=== PATIENT | male | born 1940 | race Caucasian/White ===

== ENCOUNTER 2016-09-26 13:15 | Emergency (ER) | payer MEDICARE ==
--- NOTE | 2016-09-26 14:35 | RAD ---
FRONTAL VIEW CHEST THREE VIEW LEFT RIB SERIES CLINICAL HISTORY: Fall with left chest pain. FINDINGS: Frontal view chest reveals no consolidation, effusion, or pneumothorax. A right-sided dual-lead AIC D is present. Views of the left ribs reveal no evidence of a displaced left rib fracture. IMPRESSION: 1. No focal consolidation. 2. No displaced left rib fracture. POS: [facility]
== END 2016-09-26 14:50 | disposition home or self-care (01) ==
LOC: MADERS 13:15
DX: S20.212A Contusion of left front wall of thorax, initial encounter (principal); I25.2 Old myocardial infarction; I10 Essential (primary) hypertension; Z79.82 Long term (current) use of aspirin; Z79.899 Other long term (current) drug therapy; W22.8XXA Striking against or struck by other objects, initial encounter

== ENCOUNTER 2016-11-09 12:58 | Outpatient (CLI) | payer MEDICARE ==
[2016-11-09 14:05] LABS: ALT (SGPT) 29 U/L (0-55); AST (SGOT) 29 U/L (5-34); Albumin 4.2 g/dL (3.4-4.8); Alkaline Phosphatase 54 U/L (40-150); Anion Gap 17 mmol/L (10-20); BUN (Urea Nitrogen) 21 mg/dL (8.4-25.7); Bilirubin, Direct 0.3 mg/dL (0.1-0.3); Bilirubin, Total 0.7 mg/dL (0.2-1.2); Calc. Creatinine Clearance 0 mL/min (70-130); Calcium 9.6 mg/dL (7.8-10.44); Carbon Dioxide 26 mmol/L (23-31); Cardiac Risk 2.5 (Less than 4.5); Chloride 100 mmol/L (98-107); Cholesterol 180 mg/dL (< 200 Desired); Estimated GFR-MDRD 33; Glucose 106 mg/dL (83-110); HDL Cholesterol 71 mg/dL (>60 Neg Risk); LDL Cholesterol, Calculated 79 mg/dL; Protein, Total 6.8 g/dL (5.8-8.1); Sodium 139 mmol/L (136-145); Triglycerides 150 mg/dL (Less than 150)
[2016-11-09 14:12] LABS: #Eosinphils 0.2 thou/uL (0.0-0.7); #Lymphocytes 0.9 thou/uL (1.20-3.40); #Monocytes 0.4 thou/uL (0.11-0.59); #Neutrophils 2.4 thou/uL (1.40-6.50); %Basophils 0.6 % (0.0-1.0); %Eosinophils 5.7 % (0.0-10.0); %Lymphocytes 22.5 % (21.0-51.0); %Monocytes 9.9 % (0.0-10.0); %Neutrophils 61.3 % (42.0-75.0); Anisocytosis SLIGHT = 6-15 cells (100X) (0-5/hpf); MDiff Complete? YES; Macrocytosis SLIGHT = 6-15 cells (100X) (0-5/hpf); Mean Corpuscular Hemoglobin 37.9 pg (27.0-31.0); Mean Platelet Volume 8.5 fL (7.4-10.4); PLT Morphology Comment Appears Decreased; Platelet Count 115 thou/uL (130-400); RBC Distribution Width 13.2 % (11.5-14.5); Red Blood Cell (RBC) Count 3.69 mill/uL (4.70-6.10); White Blood Cell (WBC) Count 3.9 thou/uL (4.8-10.8)
== END 2016-11-09 12:59 | disposition home or self-care (01) ==
LOC: MADLABBHPM 12:58
PROVIDERS: ATTEND Family Medicine
DX: I10 Essential (primary) hypertension (principal); I42.9 Cardiomyopathy, unspecified
CPT/HCPCS: 36415; 80048; 80061; 80076; 85025

== ENCOUNTER 2017-01-14 12:43 | Outpatient (CLI) | payer MEDICARE ==
[2017-01-14 13:36] LABS: Hemoglobin 14.4 g/dL (14.0-18.0)
[2017-01-14 13:51] LABS: Anion Gap 17 mmol/L (10-20); BUN (Urea Nitrogen) 20 mg/dL (8.4-25.7); Calc. Creatinine Clearance 0 mL/min (70-130); Calcium 9.9 mg/dL (7.8-10.44); Carbon Dioxide 25 mmol/L (23-31); Chloride 100 mmol/L (98-107); Estimated GFR-MDRD 34; Glucose 114 mg/dL (83-110); Potassium 4.2 mmol/L (3.5-5.1); Sodium 138 mmol/L (136-145)
--- NOTE | 2017-01-14 15:33 | ULT ---
RENAL ULTRASOUND: History: Chronic kidney disease. Comparison: None. FINDINGS: Right kidney measures 8.9 x 4.3 x 5.4 cm with cortical thinning. There is moderate right sided hydro nephrosis. The left kidney measures 10.5 x 5.6 x 4.8 cm without mass, hydronephrosis, or abnormal ca lcifications. Bladder volume is 21 ml pre void. The post void volume is less than 1 ml. The right sided hydronephrosis has mild decrease after urination. IMPRESSION: Chronic appearing right sided hydronephrosis with cortical thinning and small right kidney relative to the left. This suggests chronic obstructive process versus chronic reflux disease. A follow up CT could be performed. POS: [facility]
[2017-01-15 17:31] LABS: Creatinine, Urine 213.15 mg/dL (63-166)
== END 2017-01-14 12:44 | disposition home or self-care (01) ==
LOC: MADULT 12:43
PROVIDERS: ATTEND Internal Medicine Nephrology
DX: I13.0 Hypertensive heart and chronic kidney disease with heart failure and stage 1 through stage 4 chronic kidney disease, or unspecified chronic kidney disease (principal); N18.3 Chronic kidney disease, stage 3 (moderate); I48.91 Unspecified atrial fibrillation; N13.30 Unspecified hydronephrosis
CPT/HCPCS: 36415; 76770; 80048; 82306; 82570; 83970; 84156; 85014; 85018

== ENCOUNTER 2017-02-13 12:19 | Outpatient (CLI) | payer MEDICARE ==
[2017-02-13 13:20] LABS: ALT (SGPT) 35 U/L (8-55); AST (SGOT) 28 U/L (5-34); Albumin 4.1 g/dL (3.4-4.8); Alkaline Phosphatase 53 U/L (40-150); Anion Gap 18 mmol/L (10-20); BUN (Urea Nitrogen) 25 mg/dL (8.4-25.7); Bilirubin, Direct 0.4 mg/dL (0.1-0.3); Bilirubin, Total 0.8 mg/dL (0.2-1.2); Calc. Creatinine Clearance 0 mL/min (70-130); Carbon Dioxide 24 mmol/L (23-31); Cardiac Risk 2.6 (Less than 4.5); Chloride 99 mmol/L (98-107); Cholesterol 182 mg/dl (< 200 Desired); Estimated GFR-MDRD 36; Glucose 114 mg/dL (83-110); HDL Cholesterol 69 mg/dL (>60 Neg Risk); LDL Cholesterol, Calculated 88 mg/dL; Potassium 4.3 mmol/L (3.5-5.1); Protein, Total 7.2 g/dL (5.8-8.1); Sodium 137 mmol/L (136-145); Triglycerides 126 mg/dL (Less than 150)
[2017-02-13 13:25] LABS: #Eosinphils 0.3 thou/uL (0.0-0.7); #Lymphocytes 0.7 thou/uL (1.20-3.40); #Monocytes 0.4 thou/uL (0.11-0.59); #Neutrophils 2.9 thou/uL (1.40-6.50); %Basophils 0.3 % (0.0-1.0); %Eosinophils 7.8 % (0.0-10.0); %Lymphocytes 15.4 % (21.0-51.0); %Neutrophils 67.5 % (42.0-75.0); MDiff Complete? YES; Macrocytosis SLIGHT = 6-15 cells (100X) (0-5/hpf); Mean Corpuscular HGB CONC 32.4 g/dL (32.0-36.0); Mean Corpuscular Hemoglobin 37.5 pg (27.0-31.0); Mean Corpuscular Volume 115.5 fl (80.0-94.0); Mean Platelet Volume 9.4 fL (7.4-10.4); PLT Morphology Comment Appears Decreased; Platelet Count 127 thou/uL (130-400); RBC Distribution Width 12.6 % (11.5-14.5); Red Blood Cell (RBC) Count 3.75 mill/uL (4.70-6.10); White Blood Cell (WBC) Count 4.3 thou/uL (4.8-10.8)
== END 2017-02-13 12:20 | disposition home or self-care (01) ==
LOC: MADLABBHPM 12:19
PROVIDERS: ATTEND Family Medicine
DX: E78.5 Hyperlipidemia, unspecified (principal); I10 Essential (primary) hypertension; I48.91 Unspecified atrial fibrillation
CPT/HCPCS: 36415; 80048; 80061; 80076; 85025

== ENCOUNTER 2017-03-28 14:24 | Outpatient (CLI) | payer MEDICARE | END 2017-03-28 14:25 | disposition home or self-care (01) | LOC: MADLAB 14:24 | PROVIDERS: ATTEND Urology | DX: N13.39 Other hydronephrosis (principal); R97.20 Elevated prostate specific antigen [PSA] | CPT/HCPCS: 36415; 84153 ==

== ENCOUNTER 2017-04-16 13:35 | Emergency (ER) | payer MEDICARE ==
[2017-04-16 14:25] LABS: INR-International Normal Ratio 2.5; Prothrombin Time 27.8 SEC (12.0-14.7)
--- NOTE | 2017-04-16 14:26 | CT ---
NONCONTRAST HEAD CT: History: Patient fell early Saturday. Patient fell again on Saturday morning. He hit his head on the cor ner of a table. Comparison: None. Technique: Noncontrast head CT is performed in the axial plane. Reformatted images are submitted for interpretation. FINDINGS: There is a posterior midline and posterior right paramidline scalp hematoma. The underlying calvariu m is intact. Adequate aeration of the sinuses and mastoid air cells. Cavernous carotid atheroscleros is is noted. No parenchymal hemorrhage or extraaxial hematoma. No midline shift. Basilar cisterns are patent. Age appropriate atrophy. Cortical galeano white matter differentiation is preserved. Ventricles and sulci are patent and symmetric. Remote lacunar infarct in the left thalamus. Chronic small vessel ischemic change in the white matte r noted. IMPRESSION: Post-traumatic injury to the scalp. No intracranial post-traumatic sequellae. POS: [facility]
== END 2017-04-16 15:15 | disposition home or self-care (01) ==
LOC: MADERS 13:35
DX: S00.03XA Contusion of scalp, initial encounter (principal); R79.1 Abnormal coagulation profile; I25.2 Old myocardial infarction; I10 Essential (primary) hypertension; Z79.891 Long term (current) use of opiate analgesic; Z79.82 Long term (current) use of aspirin; Z79.899 Other long term (current) drug therapy; Z79.01 Long term (current) use of anticoagulants; W22.8XXA Striking against or struck by other objects, initial encounter
CPT/HCPCS: 36415; 70450; 85610

== ENCOUNTER 2017-05-14 13:41 | Outpatient (CLI) | payer MEDICARE ==
[2017-05-14 14:42] LABS: INR-International Normal Ratio 2.1; Prothrombin Time 24.5 SEC (12.0-14.7)
[2017-05-14 14:47] LABS: ALT (SGPT) 34 U/L (8-55); AST (SGOT) 31 U/L (5-34); Albumin 4.2 g/dL (3.4-4.8); Alkaline Phosphatase 57 U/L (40-150); Anion Gap 16 mmol/L (10-20); BUN (Urea Nitrogen) 21 mg/dL (8.4-25.7); Bilirubin, Direct 0.5 mg/dL (0.1-0.3); Calc. Creatinine Clearance 0 mL/min (70-130); Carbon Dioxide 27 mmol/L (23-31); Cardiac Risk 2.5 (Less than 4.5); Chloride 99 mmol/L (98-107); Cholesterol 195 mg/dl (< 200 Desired); Estimated GFR-MDRD 37; Glucose 110 mg/dL (83-110); HDL Cholesterol 77 mg/dL (>60 Neg Risk); LDL Cholesterol, Calculated 97 mg/dL; Potassium 3.9 mmol/L (3.5-5.1); Protein, Total 7.4 g/dL (5.8-8.1); Sodium 138 mmol/L (136-145); Triglycerides 105 mg/dL (Less than 150)
[2017-05-14 14:48] LABS: #Eosinphils 0.2 thou/uL (0.0-0.7); #Lymphocytes 0.7 thou/uL (1.20-3.40); #Monocytes 0.3 thou/uL (0.11-0.59); #Neutrophils 3.1 thou/uL (1.40-6.50); %Basophils 0.6 % (0.0-1.0); %Eosinophils 5.5 % (0.0-10.0); %Lymphocytes 15.4 % (21.0-51.0); %Monocytes 7.1 % (0.0-10.0); %Neutrophils 71.5 % (42.0-75.0); Anisocytosis SLIGHT = 6-15 cells (100X) (0-5/hpf); Hemoglobin 14.1 g/dL (14.0-18.0); MDiff Complete? YES; Macrocytosis SLIGHT = 6-15 cells (100X) (0-5/hpf); Mean Corpuscular HGB CONC 32.2 g/dL (32.0-36.0); Mean Corpuscular Volume 111.9 fl (80.0-94.0); Mean Platelet Volume 9.6 fL (7.4-10.4); Platelet Count 124 thou/uL (130-400); RBC Distribution Width 13.4 % (11.5-14.5); Red Blood Cell (RBC) Count 3.92 mill/uL (4.70-6.10); White Blood Cell (WBC) Count 4.4 thou/uL (4.8-10.8)
== END 2017-05-14 13:42 | disposition home or self-care (01) ==
LOC: MADLABBHPM 13:41
PROVIDERS: ATTEND Family Medicine
DX: N18.3 Chronic kidney disease, stage 3 (moderate) (principal); E78.5 Hyperlipidemia, unspecified
CPT/HCPCS: 36415; 80048; 80061; 80076; 85025; 85610

== ENCOUNTER 2017-06-11 18:02 | Outpatient (CLI) | payer MEDICARE ==
[2017-06-11 18:16] LABS: INR-International Normal Ratio 2.5; Prothrombin Time 28.4 SEC (12.0-14.7)
== END 2017-06-11 18:03 | disposition home or self-care (01) ==
LOC: MADLAB 18:02
PROVIDERS: ATTEND Internal Medicine Cardiovascular Disease
DX: I48.91 Unspecified atrial fibrillation (principal)
CPT/HCPCS: 36415; 85610

== ENCOUNTER 2017-07-12 10:41 | Outpatient (CLI) | payer MEDICARE ==
[2017-07-12 11:15] LABS: INR-International Normal Ratio 2.8; Prothrombin Time 30.6 SEC (12.0-14.7)
[2017-07-12 11:30] LABS: ALT (SGPT) 39 U/L (8-55); AST (SGOT) 28 U/L (5-34); Albumin 4.1 g/dL (3.4-4.8); Alkaline Phosphatase 58 U/L (40-150); Anion Gap 16 mmol/L (10-20); BUN (Urea Nitrogen) 17 mg/dL (8.4-25.7); Bilirubin, Total 0.8 mg/dL (0.2-1.2); Calc. Creatinine Clearance 0 mL/min (70-130); Calcium 9.8 mg/dL (7.8-10.44); Carbon Dioxide 30 mmol/L (23-31); Cardiac Risk 2.4 (Less than 4.5); Chloride 101 mmol/L (98-107); Cholesterol 195 mg/dl (< 200 Desired); Estimated GFR-MDRD 39; Glucose 132 mg/dL (83-110); HDL Cholesterol 82 mg/dL (>60 Neg Risk); LDL Cholesterol, Calculated 90 mg/dL; Magnesium 2.2 mg/dL (1.6-2.6); Potassium 4.4 mmol/L (3.5-5.1); Protein, Total 7.1 g/dL (5.8-8.1); Sodium 143 mmol/L (136-145); Triglycerides 117 mg/dL (Less than 150)
== END 2017-07-12 10:42 | disposition home or self-care (01) ==
LOC: MADLAB 10:41
PROVIDERS: ATTEND Internal Medicine Cardiovascular Disease
DX: Z51.81 Encounter for therapeutic drug level monitoring (principal); E78.00 Pure hypercholesterolemia, unspecified; I48.91 Unspecified atrial fibrillation; Z79.01 Long term (current) use of anticoagulants
CPT/HCPCS: 36415; 80053; 80061; 83735; 83880; 84443; 85610

== ENCOUNTER 2017-07-31 14:22 | Outpatient (CLI) | payer MEDICARE ==
[2017-07-31 15:00] LABS: INR-International Normal Ratio 1.1; Prothrombin Time 14.5 SEC (12.0-14.7)
== END 2017-07-31 14:23 | disposition home or self-care (01) ==
LOC: MADLABBHPM 14:22
PROVIDERS: ATTEND Family Medicine
DX: Z51.81 Encounter for therapeutic drug level monitoring (principal); I48.91 Unspecified atrial fibrillation; Z79.01 Long term (current) use of anticoagulants
CPT/HCPCS: 36415; 85610

== ENCOUNTER 2017-09-02 21:08 | Emergency (ER) | payer MEDICARE ==
[~2017-09-02 21:08] MED LIST: Sodium Chloride 0.9% 500 ML BAG ONE
[2017-09-02 21:55] LABS: Bilirubin Negative (Negative); Blood, Urine Small (Negative); Clarity Clear (Clear); Glucose, Urine (Dipstick) Negative (Negative); Leukocyte Trace (Negative); Nitrite Negative (Negative); Protein, Urine (Dipstick) Negative (Neg-Trace); Specific Gravity, Urine 1.015 (1.005-1.030); Urobilinogen 0.2 mg/dL (0.2-1.0)
[2017-09-02 22:03] LABS: INR-International Normal Ratio 2.2; PTT 34.9 SEC (22.9-36.1); Prothrombin Time 25.3 SEC (12.0-14.7)
--- NOTE | 2017-09-02 22:03 | RAD ---
PORTABLE AP CHEST RADIOGRAPH: Date: 09-02-17 History: Dyspnea. Comparison: 07-22-17 FINDINGS: Dual-lead left subclavian AICD device is noted in place. There is mild elevation of left hemidiaphrag m. Cardiac silhouette and pulmonary vasculature are within normal limits. The lungs remain clear. The re has been no interval change compared to the prior exam. IMPRESSION: No acute cardiopulmonary process. POS: [facility]
[2017-09-02 22:05] LABS: #Eosinphils 0.1 thou/uL (0.0-0.7); #Lymphocytes 0.7 thou/uL (1.20-3.40); #Monocytes 0.5 thou/uL (0.11-0.59); #Neutrophils 4.5 thou/uL (1.40-6.50); %Basophils 0.4 % (0.0-1.0); %Eosinophils 2.4 % (0.0-10.0); %Lymphocytes 11.1 % (21.0-51.0); %Monocytes 8.9 % (0.0-10.0); %Neutrophils 77.2 % (42.0-75.0); Hemoglobin 14.4 g/dL (14.0-18.0); Mean Corpuscular HGB CONC 33.7 g/dL (32.0-36.0); Mean Corpuscular Hemoglobin 36.4 pg (27.0-31.0); Mean Corpuscular Volume 107.9 fl (80.0-94.0); Mean Platelet Volume 9.7 fL (7.4-10.4); Platelet Count 168 thou/uL (130-400); RBC Distribution Width 13.2 % (11.5-14.5); Red Blood Cell (RBC) Count 3.97 mill/uL (4.70-6.10); White Blood Cell (WBC) Count 5.8 thou/uL (4.8-10.8)
[2017-09-02 22:07] LABS: Anisocytosis MODERATE=16-30 cells (100X) (0-5/hpf); Bacteria/HPF 1+ HPF (None Seen); Macrocytosis MODERATE=16-30 cells (100X) (0-5/hpf)
[2017-09-02 22:15] LABS: ALT (SGPT) 88 U/L (8-55); AST (SGOT) 38 U/L (5-34); Albumin 4.3 g/dL (3.4-4.8); Alkaline Phosphatase 74 U/L (40-150); Anion Gap 20 mmol/L (10-20); BUN (Urea Nitrogen) 50 mg/dL (8.4-25.7); Bilirubin, Total 0.8 mg/dL (0.2-1.2); Calc. Creatinine Clearance 0 mL/min (70-130); Calcium 10.4 mg/dL (7.8-10.44); Carbon Dioxide 31 mmol/L (23-31); Chloride 87 mmol/L (98-107); Estimated GFR-MDRD 23; Globulin 3.3 g/dL (2.4-3.5); Glucose 163 mg/dL (83-110); Potassium 3.7 mmol/L (3.5-5.1); Protein, Total 7.6 g/dL (5.8-8.1); Sodium 134 mmol/L (136-145)
[2017-09-02] MEDS ORDERED: Cephalexin 250 MG CAP ONE (23:03)
== END 2017-09-02 23:40 | disposition home or self-care (01) ==
LOC: MADERS 21:08
DX: E86.0 Dehydration (principal); N39.0 Urinary tract infection, site not specified; I25.2 Old myocardial infarction; I10 Essential (primary) hypertension; F17.210 Nicotine dependence, cigarettes, uncomplicated; Z79.01 Long term (current) use of anticoagulants; Z79.82 Long term (current) use of aspirin; Z79.899 Other long term (current) drug therapy
CPT/HCPCS: 36415; 71045; 80053; 81003; 81015; 83605; 83880; 85025; 85610; 85730; 87086; 93005; 94760; 96360; 96361; J7050

== ENCOUNTER 2017-11-07 15:25 | Outpatient (CLI) | payer MEDICARE ==
[2017-11-07 16:18] LABS: Bilirubin Negative (Negative); Blood, Urine Large (Negative); Glucose, Urine (Dipstick) Negative (Negative); Leukocyte Small (Negative); Nitrite Positive (Negative); Protein, Urine (Dipstick) 30 mg/dL (Neg-Trace); Urobilinogen 0.2 mg/dL (0.2-1.0)
[2017-11-07 16:24] LABS: Clarity Hazy (Clear)
[2017-11-07 16:25] LABS: Bacteria/HPF Rare-Few HPF (None Seen); RBC/HPF GREATER THAN 50-TNTC HPF (0-3); Squamous Epithelial 0-3 HPF (0-3)
== END 2017-11-07 15:26 | disposition home or self-care (01) ==
LOC: MADLAB 15:25
PROVIDERS: ATTEND Urology
DX: N40.1 Benign prostatic hyperplasia with lower urinary tract symptoms (principal); N13.39 Other hydronephrosis
CPT/HCPCS: 81001

== ENCOUNTER 2018-03-24 09:51 | Outpatient (CLI) | payer MEDICARE ==
[2018-03-24 12:18] LABS: Anion Gap 19 mmol/L (10-20); BUN (Urea Nitrogen) 31 mg/dL (8.4-25.7); Calc. Creatinine Clearance 0 mL/min (70-130); Calcium 9.5 mg/dL (7.8-10.44); Chloride 99 mmol/L (98-107); Estimated GFR-MDRD 50; Glucose 117 mg/dL (83-110); Potassium 3.9 mmol/L (3.5-5.1); Sodium 136 mmol/L (136-145)
[2018-03-24 14:11] LABS: Carbon Dioxide 26 mmol/L (23-31)
== END 2018-03-24 09:52 | disposition home or self-care (01) ==
LOC: MADLABBHPM 09:51
PROVIDERS: ATTEND Internal Medicine Cardiovascular Disease
DX: I50.22 Chronic systolic (congestive) heart failure (principal)
CPT/HCPCS: 36415; 80048

== ENCOUNTER 2018-06-11 15:33 | Outpatient (CLI) | payer MEDICARE ==
[2018-06-11 15:57] LABS: Bilirubin Negative (Negative); Blood, Urine Large (Negative); Glucose, Urine (Dipstick) Negative (Negative); Leukocyte Moderate (Negative); Nitrite Positive (Negative); Protein, Urine (Dipstick) 100 mg/dL (Neg-Trace); pH, Urine 5.5 (5.0-9.0)
[2018-06-11 15:58] LABS: Clarity Cloudy (Clear)
[2018-06-12 16:50] LABS: RBC/HPF 21-50 HPF (0-3)
[2018-06-12 16:51] LABS: Bacteria/HPF 4+ HPF (None Seen); Crystals/HPF 3+ CA OXALATE HPF (Negative); Squamous Epithelial 0-3 HPF (0-3); Transitional Epithelial 0-3 HPF (0-3)
== END 2018-06-11 15:34 | disposition home or self-care (01) ==
LOC: MADLABBHPM 15:33
PROVIDERS: ATTEND Family Medicine
DX: N39.0 Urinary tract infection, site not specified (principal); R30.0 Dysuria
CPT/HCPCS: 81003; 81015; 87077; 87086

== ENCOUNTER 2018-06-28 18:27 | Outpatient (CLI) | payer MEDICARE ==
[2018-06-28 18:48] LABS: Bilirubin Negative (Negative); Blood, Urine Moderate (Negative); Clarity Clear (Clear); Glucose, Urine (Dipstick) Negative (Negative); Leukocyte Moderate (Negative); Nitrite Negative (Negative); Protein, Urine (Dipstick) Trace mg/dL (Neg-Trace); Specific Gravity, Urine 1.015 (1.005-1.030); Urobilinogen 0.2 mg/dL (0.2-1.0)
[2018-06-28 18:59] LABS: Bacteria/HPF Rare-Few HPF (None Seen); Squamous Epithelial 0-3 HPF (0-3); WBC/HPF 21-50 HPF (0-3)
[2018-06-28 19:00] LABS: Crystals/HPF RARE CA OXALATE HPF (Negative); Other Casts/LPF 0-3 COARSE GRAN LPF (0-3 Hyaline)
== END 2018-06-28 18:28 | disposition home or self-care (01) ==
LOC: MADLAB 18:27
PROVIDERS: ATTEND Urology
DX: Z51.81 Encounter for therapeutic drug level monitoring (principal); I48.91 Unspecified atrial fibrillation; Z79.01 Long term (current) use of anticoagulants
CPT/HCPCS: 81001; 87086

== ENCOUNTER 2019-10-08 14:35 | Inpatient (IN) | payer MEDICARE ==
[2019-10-08] MEDS ORDERED: Diphenoxylate HCl/Atropine Tablet PO PRN (17:43)
[2019-10-08] MEDS ORDERED: traMADol HCl 50 MG TAB PO PRN (17:43)
[2019-10-08] MEDS ORDERED: Midodrine HCl 2.5 MG TAB PO PRN (17:43)
[2019-10-08] MEDS ORDERED: Ventolin HFA Inhaler 60 PUFF INHALER INH PRN (17:43)
[2019-10-08] MEDS ORDERED: HYDROcodone/Acetaminophen 10/325 mg Tablet PO PRN (17:43)
[2019-10-08] MEDS ORDERED: Clindamycin 150 MG CAP PO SCH (18:00)
[2019-10-08 18:16] VITALS: BP 107/82; TEMP 98.1
[2019-10-08] MEDS ORDERED: Atorvastatin Calcium 40 MG TAB PO SCH (21:00)
[2019-10-08] MEDS ORDERED: Tamsulosin HCl 0.4 MG CAP PO SCH (21:00)
[2019-10-08] MEDS ORDERED: Non-Formulary Item 1 EACH (Potassium Chloride [Potassium Chloride] 10 MEQ) PO SCH (21:00)
[2019-10-08] MEDS ORDERED: Amiodarone 200 MG TAB PO SCH (21:00)
[2019-10-08] MEDS ORDERED: Torsemide 20 MG TAB PO SCH (21:00)
--- NOTE | 2019-10-09 05:41 | HP ---
CHIEF COMPLAINT: Weak and sore on his left foot. HISTORY OF PRESENT ILLNESS: The patient is an 79-year-old white male, who has a history of an ischemic cardiomyopathy with an ejection fraction now of 40% to 45 %, who has an AICD and history of repeated episodes of ventricular tachycardia. He also has a history of bladder cancer and urothelial carcinoma of the right ureter, for which he has been on chemotherapy and radiation with carboplatin and Taxol. He has completed six treatments, the last of which was on 09/25/2019. He also has received 28 radiation treatments, the last of which was on 09/30/2019. The patient was hospitalized at [facility] from 09/30 to 10/08/2019, because of the ulceration of the left heel with infection and also possible bronchial pneumonia. He was also found to be very neutropenic, probably from the most recent chemotherapy. He received 1 unit of blood, was treated with cefepime and vancomycin. He gradually improved, but was left extremely weak and had ongoing care of the left heel. The radiation therapy was stopped because of a radiation- induced cystitis and possible colitis. His chemotherapy was stopped due to the neutropenia and acute illness. The patient was referred to [facility] for purpose of physical therapy and occupational therapy in an effort to try to improve his general strength. The patient said prior to this hospitalization, he had been able to ambulate in his home with a walker and even in the driveway some. He is able to feed himself. He needs assistance with dressing and needs assistance with all his instrumental ADLs. The patient was seen soon after his admission and was able to tell me that he had been hospitalized for these above reasons and that lately, he has not had much of an appetite, has been just a little nauseated today. I have reviewed his records from [facility] during this admission and noted that he was seen by the Pulmonary doctor, Dr. Fletcher this morning and said that he had a little disorientation after taking the Ambien last night, this will be stopped. His neutropenia had resolved or had markedly improved with white cell count up to 3.3, hematocrit up to 26.1, and a platelet count of 34,000. PAST MEDICAL HISTORY: Hospitalized at [facility] from 09/30 until 10/08/2019 for infected ulcer on the left heel, neutropenia from recent radiation therapy, requiring transfusion of 1 unit of blood, possible bronchopneumonia and radiation-induced cystitis, for which his radiation has now been stopped. The patient was treated initially with IV cefepime and vancomycin. The patient has ischemic cardiomyopathy. Initially, the EF was 30% to 35%, but this has improved to 40% to 45% on echocardiogram done on 10/06/2019. There was evidence of inferior wall and apex hypokinesis. The patient has an AICD for the cardiomyopathy, has been treated in the past for repeated episodes of ventricular tachycardia. He has coronary artery disease, for which he has had multiple stents. He also required a pericardial window in April 2018 for pericardial tamponade. He has a history of hypertension, macular degeneration, atrial fibrillation, bilateral cataracts that have been removed with intraocular lens implant, history of congestive heart failure, chronic kidney disease, cancer of the bladder. 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 Orthostatic hypotension. PRESENT MEDICINES: 1. Lomotil 2 tabs q.i.d. as needed. 2. Torsemide 20 mg b.i.d. 3. Midodrine 2.5 mg b.i.d. 4. Hydrocodone/acetaminophen 10/325 one t.i.d. as needed. 5. Tamsulosin 0.4 mg at bedtime. 6. Potassium chloride 10 mEq b.i.d. 7. Vitamin D3 of 1000 units daily. 8. Ventolin inhaler two puffs every 6 hours as needed. 9. Tylenol PM one at bedtime as needed. 10. Folic acid 1 mg daily. 11. Finasteride 5 mg daily. 12. Clindamycin 450 mg every 6 hours. 13. Atorvastatin 40 mg at bedtime. 14. Amiodarone 200 mg t.i.d. 15. Tramadol 50 mg q.i.d. as needed. ALLERGIES: AMBIEN CAUSES CONFUSION. MUCINEX CAUSES PALPITATION. REVIEW OF SYSTEMS: GENERAL: The patient said he has been doing okay, just does not have much of an appetite. He does not think he has had any recent fever. HEAD AND NECK: No complaints. PULMONARY: The patient says he is on continuous supplemental oxygen. CARDIOVASCULAR: The patient has a history of repeated episodes of ventricular tachycardia and has had multiple episodes where his AICD discharges, had a new AICD implanted two months ago and he said since then he has not had any discharges. GI: Poor appetite. He has had a little nausea. He has intermittent diarrhea. NEUROPSYCHIATRIC: The patient has problems. The patient says he has generalized weakness that is nonfocal. HABITS: The patient smokes. Alcohol, none. SOCIAL HISTORY: The patient is , lives with his who is the primary caregiver. CODE STATUS: DNR. PHYSICAL EXAMINATION: GENERAL: Shows a weak 79-year-old white male, who is lying in bed. He is alert , talkative, recognized me, and appears in no acute distress. VITAL SIGNS: His temp is 98.6, pulse 73, respirations 18, O2 saturation 90% on 4 L, and blood pressure 103/57. The patient has not yet been weighed here. HEENT: Head, normocephalic. Eyes, pupils are equal, round, and reactive. Sclerae nonicteric. Ears, TMs are clear. Nose, normal. Mouth and throat, normal. NECK: Carotids are equal and strong. LUNGS: Clear. HEART: Regular rate. The patient has an AICD pacemaker in the right upper anterior chest, incision overlying, this is well healed. ABDOMEN: Soft, nontender. EXTREMITIES: No edema. The patient has an ulcer on the left heel, this is dressed and according to the pictures, this is about 2 to 3 cm with a black overlying eschar. On his left buttock, there is about a 3 cm stage II decubitus. NEUROLOGIC: The patient is alert and oriented to where he is and situation. He has generalized weakness that is nonfocal. IMPRESSION: 1. Generalized weakness and deconditioning. a. Following hospitalization from 09/30 to 10/08 for infected decubitus of the left heel, bronchial pneumonia, neutropenia from recent chemotherapy, required transfusion with 1 unit of blood and radiation cystitis. b. Requires assistance with all his ADLs. 2. Ischemic cardiomyopathy. a. Originally, ejection fraction was 30% to 35%. On echocardiogram on 10/06 , EF was up to 40% to 45%. b. Status post AICD placement and replacement again two months ago. c. Complicated by repeated episodes of ventricular fibrillation and episode of AICD discharge on 10/08/19 with transfer to ER. 3. Coronary artery disease. a. Status post multiple stents. 4. Cancer of the bladder and urothelial carcinoma of the right ureter. a. Status post six cycles of chemotherapy with carboplatin and Taxol, last treatment 09/25/2019, complicated by neutropenia. b. Status post radiation therapy, 28 treatments, that was stopped on 09/30 for radiation cystitis. 5. Chronic kidney disease. 6. Orthostatic hypotension. 7. Stage II decubitus on the left buttock. 8. Unstageable decubitus on the left heel. a. Recent infection. 9. Chronic hypoxic respiratory failure. a. Continue with supplemental O2. 10. Gastroesophageal reflux disease. PLAN: The patient has been admitted for wound care and for PT and OT. The patient had requested getting up to go to the restroom because he felt like he needed to have a bowel movement. While sitting on the commode with the nurse there, he had a sudden jerk and said that his pacemaker had discharged. The patient was taken back to the emergency room. I spoke with the emergency room doctor, Dr. Isidoro [place] because the patient has had probably an episode of ventricular tachycardia based on his history and an AICD discharge. Do not have the capabilities of monitoring this patient here; anticipate that he will require transfer back to [facility] and re-evaluation by his orthotic technician. Job ID: [id number] MTDD
[2019-10-09] MEDS ORDERED: Finasteride 5 MG TAB PO SCH (09:00)
[2019-10-09] MEDS ORDERED: Non-Formulary Item 1 EACH (Cholecalciferol (Vitamin D3) [Vitamin D3] 1,000 UNIT) PO SCH (09:00)
[2019-10-09] MEDS ORDERED: Folic Acid 1 MG TAB PO SCH (09:00)
== END 2019-10-08 18:17 | disposition short-term general hospital (02) | DRG 593 ==
LOC: MADMS 14:35
PROVIDERS: ADMIT Family Medicine; ATTEND Family Medicine
DX: L89.620 Pressure ulcer of left heel, unstageable (principal); I13.0 Hypertensive heart and chronic kidney disease with heart failure and stage 1 through stage 4 chronic kidney disease, or unspecified chronic kidney disease; J96.11 Chronic respiratory failure with hypoxia; I47.2 Ventricular tachycardia; Z95.810 Presence of automatic (implantable) cardiac defibrillator; L08.9 Local infection of the skin and subcutaneous tissue, unspecified; I25.10 Atherosclerotic heart disease of native coronary artery without angina pectoris; I48.91 Unspecified atrial fibrillation; Z98.42 Cataract extraction status, left eye; Z98.41 Cataract extraction status, right eye; I50.9 Heart failure, unspecified; N18.9 Chronic kidney disease, unspecified; Z88.8 Allergy status to other drugs, medicaments and biological substances; F17.200 Nicotine dependence, unspecified, uncomplicated; Z66 Do not resuscitate; I25.5 Ischemic cardiomyopathy; I95.1 Orthostatic hypotension; K21.9 Gastro-esophageal reflux disease without esophagitis
CPT/HCPCS: 71045; 82553; 83880; 84484; 93005

== ENCOUNTER 2019-10-08 17:50 | Emergency (ER) | payer MEDICARE ==
--- NOTE | 2019-10-08 18:33 | RAD ---
PORTABLE CHEST ONE VIEW: 10/08/19 at 6:30 p.m. HISTORY: Dyspnea. COMPARISON: 10/05/19. FINDINGS/IMPRESSION: A right sided AICD remains in place. The heart size is normal. There is pulmonary vascular congestion with probable small effusions and left basilar atelectasis/consolidation. No pneumothoraces are see n. POS: [facility]
[2019-10-08 18:53] LABS: Hemoglobin 9.6 g/dL (14.0-18.0); Mean Corpuscular HGB CONC 31.3 g/dL (32.0-36.0); Mean Corpuscular Hemoglobin 29.2 pg (27.0-31.0); Mean Corpuscular Volume 93.4 fL (78.0-98.0); Mean Platelet Volume 10.6 fL (7.4-10.4); Platelet Count 81 thou/uL (130-400); RBC Distribution Width 18.5 % (11.5-14.5); Red Blood Cell (RBC) Count 3.27 mill/uL (4.70-6.10); White Blood Cell (WBC) Count 4.4 thou/uL (4.8-10.8)
[2019-10-08 19:03] LABS: ALT (SGPT) 19 U/L (8-55); AST (SGOT) 18 U/L (5-34); Albumin 2.9 g/dL (3.4-4.8); Alkaline Phosphatase 71 U/L (40-110); Anion Gap 14 mmol/L (10-20); BUN (Urea Nitrogen) 17 mg/dL (8.4-25.7); Bilirubin, Total 1.7 mg/dL (0.2-1.2); Calc. Creatinine Clearance 0 mL/min (70-130); Calcium 8.5 mg/dL (7.8-10.44); Carbon Dioxide 27 mmol/L (23-31); Chloride 98 mmol/L (98-107); Estimated GFR-MDRD 55; Globulin 2.3 g/dL (2.4-3.5); Glucose 138 mg/dL (83-110); Potassium 3.3 mmol/L (3.5-5.1); Protein, Total 5.2 g/dL (5.8-8.1); Sodium 136 mmol/L (136-145)
[2019-10-08 19:20] LABS: CKMB 1.3 ng/mL (0-6.6)
[2019-10-08 19:28] LABS: Anisocytosis SLIGHT = 6-15 cells (100X) (0-5/hpf); Band 7 % (5-11); Elliptocytes SLIGHT = 2-5 cells (100X) (0-1/hpf); Hypochromia SLIGHT = 6-15 cells (100X) (0-5/hpf); Lymphocytes 8 % (21-51); MDiff Complete? YES; Monocytes 5 % (0-10); Neutrophil 80 % (42-75); Platelet Morphology Comment Appears Decreased; Schistocytes SLIGHT = 2-5 cells (100X) (0-1/hpf)
[2019-10-08] MEDS ORDERED: Aspirin Chewable 81 MG TAB ONE (19:37)
== END 2019-10-08 20:23 | disposition short-term general hospital (02) ==
LOC: MADERS 17:50
DX: T82.198A Other mechanical complication of other cardiac electronic device, initial encounter (principal); I11.0 Hypertensive heart disease with heart failure; I50.9 Heart failure, unspecified; J44.9 Chronic obstructive pulmonary disease, unspecified; E78.5 Hyperlipidemia, unspecified; E78.00 Pure hypercholesterolemia, unspecified; I25.2 Old myocardial infarction; F17.210 Nicotine dependence, cigarettes, uncomplicated
CPT/HCPCS: 71045; 82553; 83880; 84484; 93005

== ENCOUNTER 2019-10-23 12:41 | Emergency (ER) | payer MEDICARE ==
--- NOTE | 2019-10-23 13:12 | RAD ---
PORTABLE CHEST: DATE: 10/23/2019. TIME: 1:10 PM. HISTORY: Chest pain. COMPARISON: 10/13/2019. FINDINGS: Right-sided AICD remains in place. The heart size is normal. The aorta is tortuous. The lungs are expanded without lobar consolidation, pneumothoraces, priya pulmonary edema, or pleural effusions. IMPRESSION: No acute process. POS: [facility]
[2019-10-23 13:41] LABS: #Basophils 0.1 thou/uL (0.0-0.2); #Lymphocytes 0.4 thou/uL (1.20-3.40); #Monocytes 0.6 thou/uL (0.11-0.59); #Neutrophils 4.9 thou/uL (1.40-6.50); %Basophils 0.9 % (0.0-1.0); %Eosinophils 0.7 % (0.0-10.0); %Lymphocytes 6.7 % (21.0-51.0); %Monocytes 9.4 % (0.0-10.0); %Neutrophils 82.3 % (42.0-75.0); Hemoglobin 7.7 g/dL (14.0-18.0); Mean Corpuscular HGB CONC 31.5 g/dL (32.0-36.0); Mean Corpuscular Hemoglobin 30.6 pg (27.0-31.0); Mean Platelet Volume 8.3 fL (7.4-10.4); Platelet Count 125 thou/uL (130-400); RBC Distribution Width 21.6 % (11.5-14.5); Red Blood Cell (RBC) Count 2.53 mill/uL (4.70-6.10)
[2019-10-23 13:51] LABS: Anisocytosis SLIGHT = 6-15 cells (100X) (0-5/hpf); Ovalocytes SLIGHT = 2-5 cells (100X) (0-1/hpf); Platelet Morphology Comment Appears Adequate; Poikilocytosis SLIGHT = 6-15 cells (100X) (0-5/hpf)
[2019-10-23 13:54] LABS: ALT (SGPT) 20 U/L (8-55); AST (SGOT) 18 U/L (5-34); Albumin 2.7 g/dL (3.4-4.8); Alkaline Phosphatase 78 U/L (40-110); Anion Gap 12 mmol/L (10-20); BUN (Urea Nitrogen) 24 mg/dL (8.4-25.7); Bilirubin, Total 1.1 mg/dL (0.2-1.2); CK (CPK) 26 U/L (30-200); Calc. Creatinine Clearance 0 mL/min (70-130); Calcium 8.5 mg/dL (7.8-10.44); Carbon Dioxide 31 mmol/L (23-31); Chloride 94 mmol/L (98-107); Estimated GFR-MDRD 40; Globulin 2.9 g/dL (2.4-3.5); Glucose 148 mg/dL (83-110); Protein, Total 5.6 g/dL (5.8-8.1); Sodium 133 mmol/L (136-145)
[2019-10-23 14:12] LABS: CKMB 1.9 ng/mL (0-6.6)
--- NOTE | 2019-10-24 08:02 | PRG ---
DATE OF SERVICE: 10/23/2019 The patient had been sitting up in his chair, having lunch and had finished this. He called the nurse and as she came in, he hollered and jerked from discharge of his AICD. He was taken to the emergency room and evaluated. His EKG did not show any ST-segment elevation and his troponin I was 0.048. He was remained in regular rhythm and had no more discharge, was alert and talkative and he and his told the ER doctor that he did not want to go back to hospital of higher level of care that is [facility] where his cardiologists are. He said there was nothing more that they were really going to be able to do. He wanted to stay at this hospital. ER doctor called me and we talked about this and the patient was brought back to his hospital room. I have spoke with the patient and his and they have asked me to continue managing him. They said that he is a DNR. Right now, he still wants to leave the defibrillator on. If the defibrillator discharges, we will just manage him for comfort. He is presently on amiodarone 200 mg twice today. We will increase this to three times a day to see if we can better suppress these episodes of ventricular tachycardia. This has been done in the past and has helped him, and once he was stable, it was reduced back to twice today. His and the patient are in agreement with this. We will continue comfort measures for him. Job ID: [id number]
== END 2019-10-23 14:51 | disposition critical access hospital (66) ==
LOC: MADERS 12:41
DX: T82.897A Other specified complication of cardiac prosthetic devices, implants and grafts, initial encounter (principal); I47.2 Ventricular tachycardia; F17.210 Nicotine dependence, cigarettes, uncomplicated; I11.0 Hypertensive heart disease with heart failure; I50.9 Heart failure, unspecified; E78.00 Pure hypercholesterolemia, unspecified; I95.9 Hypotension, unspecified; E78.5 Hyperlipidemia, unspecified; I25.2 Old myocardial infarction; J44.9 Chronic obstructive pulmonary disease, unspecified
CPT/HCPCS: 71045; 82550; 82553; 84484; 85025; 93005; 94760